=== PATIENT | male | born 1995 | race Caucasian/White ===

== ENCOUNTER 2017-05-11 17:36 | Emergency (ER) | payer OTHER ==
[~2017-05-11] VITALS: Ht 185.4 cm; Wt 79.9 kg
[2017-05-11 17:40] VITALS: TEMP 36.6; Ht 185.4 cm; Wt 79.9 kg
--- NOTE | 2017-05-11 17:51 | EMERGENCY ROOM VISIT NOTE ---
History Report prepared by [place]: Jeanette Dominguez Under the Supervision of: Dr. Curt Cantrell M.D. First contact with patient: 17:43 Chief Complaint: HEADACHE Stated Complaint: HEADACHE,GROGGINESS,BLURRY VISION History of Present Illness The patient is a 21 year old male who presents to the Emergency Room with complaints of a worsening headache that began 2 weeks prior to arrival. He rates his headache as an 8/10 in severity. The patient states that the headache has worsened significantly over the past 2 days. He describes the headache as a pressure sensation to the top of his head. The patient states that he was playing basketball when the headache began. He had a whiplash effect occur that caused the headache. The patient has a history of concussions. He notes farsighted vision blurriness has worsened these past 2 weeks. The patient did take Tylenol 1 hour prior to arrival. He denies nausea, fever or chills. 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 Review of Systems All systems have been listed, reviewed, and are negative other than those previously mentioned. Please see Additional Medical History Sheet. Past Medical & Surgical Medical Problems: (1) Concussion Family History Patient reports no known family medical history. Social History Smoking Status: Never Smoker Smokeless Tobacco Use: No Housing Status: lives with roommate Occupation Status: [employer] student Current/Historical Medications No Active Prescriptions or Reported Meds Allergies Coded Allergies: No Known Allergies (Unverified , 05/11/17) Physical Exam Vital Signs Date Time Temp Pulse Resp B/P (MAP) Pulse Ox O2 Delivery O2 Flow Rate FiO2 05/11/17 20:02 89 18 132/75 96 Room Air 05/11/17 17:40 36.6 119 18 132/84 93 Room Air Physical Exam GENERAL: Patient is in minimal distress. Patient awake, alert, oriented x 3. Patient follows commands. Patient does not appear toxic. Patient is adequately hydrated and well-nourished. SKIN: No erythema, pallor, cyanosis or rash HEENT: Normal head, pupils equal, reactive to light and accommodation. Ears normal. Oral cavity and posterior pharynx appear normal. Neck: Supple, nontender. Without adenopathy, no meningeal findings. No cervical tenderness, no cervical neuropathy. No raccoon signs, no paniagua sign, no hemotympanum. LUNGS: Clear to auscultation. No wheezes, no rales, no rhonchi. HEART: No murmurs. No gallops. No rubs ABDOMEN: Soft, nontender. EXTREMITIES: No signs of trauma. NEUROLOGIC: Cranial nerves II-XII within normal limits. No gross motor sensory function deficits. Medical Decision & Procedures ER Provider Diagnostic Interpretation: CT results are interpretations by the radiologist and per my review. CT HEAD WITHOUT CONTRAST (CT) CLINICAL HISTORY: headache nausea COMPARISON STUDY: No previous studies for comparison. TECHNIQUE: Axial CT of the brain is performed from the vertex to the skull base. IV contrast was not administered for this examination. CT DOSE: 687.98 mGy.cm FINDINGS: No intra or extra-axial mass lesions are visualized. There is no CT evidence of acute cortical infarction. There is no evidence of midline shift. There is no acute hemorrhage. No calvarial fractures are visualized. There is no evidence of pathologic ventricular dilatation. There is no evidence of acute sinusitis IMPRESSION: Normal noncontrast head CT. Electronically signed by: Luis Garcia M.D. 05/11/2017 6:50 PM Dictated Date/Time: 05/11/2017 6:49 PM Laboratory Results 05/11/17 18:00 05/11/17 18:00 Test 05/11/17 18:00 Red Blood Count 5.54 M/uL (4.7-6.1) Mean Corpuscular Volume 82.9 fL (80-100) Mean Corpuscular Hemoglobin 29.2 pg (25-34) Mean Corpuscular Hemoglobin Concent 35.3 g/dl (32-36) RDW Standard Deviation 38.0 fL (36.4-46.3) RDW Coefficient of Variation 12.6 % (11.5-14.5) Mean Platelet Volume 10.1 fL (7.4-10.4) Anion Gap 6.0 mmol/L (3-11) Est Creatinine Clear Calc Drug Dose 101.6 ml/min Estimated GFR () 90.4 Estimated GFR (Non- 78.0 BUN/Creatinine Ratio 10.8 (10-20) Calcium Level 9.2 mg/dl (8.5-10.1) Laboratory results as stated above per my review. ED Course 1743: Past medical records reviewed. The patient was evaluated in room C3. A complete history and physical examination was performed. 1922: I discussed test results with the patient and he is feeling better. 1926: Upon reevaluation, the patient appeared to have improvement of his symptoms. I discussed today's findings with him. He verbalized agreement of the treatment plan. He was discharged home. Medical Decision Nurses notes reviewed. Medical history sheet reviewed. Differential diagnosis includes but is not limited to: tension headache, migraine headache, post concussive syndrome, intracerebral bleed. Medication Reconciliation: I attest that I have personally reviewed the patient' s current medication list. Blood pressure Screening: Patient was found to have normal blood pressure on screening and does not require follow up. Multiple labs and imaging were performed. Please see above. The patient is no evidence of any intracerebral pathology. Labs were felt to be within normal range. Most likely the patient has a tension-type headache. He got relief with Tylenol. He will continue that medication at home as needed. He was instructed to follow[facility]up at [facility] this week. Impression Primary Impression: Headache Scribe Attestation The scribe's documentation has been prepared under my direction and personally reviewed by me in its entirety. I confirm that the note above accurately reflects all work, treatment, procedures, and medical decision making performed by me. Departure Information Dispostion Home / Self-Care Prescriptions No Active Prescriptions or Reported Meds Forms HOME CARE DOCUMENTATION FORM, IMPORTANT VISIT INFORMATION Patient Instructions [facility] Additional Instructions 650 mg of Tylenol every 4 hours as needed for headache. Follow-up at daily at daily at [facility] this coming week. Return here sooner if your headache is getting much worse.
[2017-05-11 18:09] LABS: HEMATOCRIT 45.9 % (42-52); MEAN CELL VOLUME 82.9 fL (80-100); MEAN CORPUSCULAR HEMOGLOBIN 29.2 pg (25-34); MEAN CORPUSCULAR HGB CONC 35.3 g/dl (32-36); MEAN PLATELET VOLUME 10.1 fL (7.4-10.4); PLATELET COUNT 236 K/uL (130-400); RED BLOOD COUNT 5.54 M/uL (4.7-6.1); WHITE BLOOD COUNT 5.78 K/uL (4.8-10.8)
[2017-05-11 18:27] LABS: BUN/CREATININE RATIO 10.8 (10-20); CALCIUM 9.2 mg/dl (8.5-10.1); CREATININE 1.3 mg/dl (0.60-1.40)
--- NOTE | 2017-05-11 18:52 | DIAGNOSTIC IMAGING REPORT ---
CT HEAD WITHOUT CONTRAST (CT) CLINICAL HISTORY: headache nausea COMPARISON STUDY: No previous studies for comparison. TECHNIQUE: Axial CT of the brain is performed from the vertex to the skull base. IV contrast was not administered for this examination. CT DOSE: 687.98 mGy.cm FINDINGS: No intra or extra-axial mass lesions are visualized. There is no CT evidence of acute cortical infarction. There is no evidence of midline shift. There is no acute hemorrhage. No calvarial fractures are visualized. There is no evidence of pathologic ventricular dilatation. There is no evidence of acute sinusitis IMPRESSION: Normal noncontrast head CT. Electronically signed by: Luis Garcia M.D. 05/11/2017 6:50 PM Dictated Date/Time: 05/11/2017 6:49 PM
[2017-05-11 20:02] VITALS: BP 132/75; PULSE 89; O2SAT 96
== END 2017-05-11 20:03 | disposition home or self-care (01) ==
LOC: C.EDB 17:38 → C.EDC 20:03
DX: R51 Headache (principal)